=== PATIENT | male | born 1965 | race Two or more races ===

== ENCOUNTER 2017-02-04 07:09 | Day surgery (SDC) | payer OTHER ==
[2017-02-04] MEDS ORDERED: LR 1,000 ML IV ONE (07:44)
[2017-02-04] MEDS ORDERED: LIDOCAINE 1% 2 ML INJ ID PRN (07:44)
[2017-02-04 07:52] VITALS: PULSE 57
--- NOTE | 2017-02-04 08:05 | PDGENHP ---
History & Physical Chief Complaint: Screening colonoscopy Relevant Physical Exam: GEN: NAD. Cardiac: RRR. Lungs: CTA B. Abd: Soft, nt, nd
--- NOTE | 2017-02-04 08:13 | PDANEPAE ---
ANE History of Present Illness 52 YO m HERE FOR SCREENING COLO ANE Past Medical History - Cardiovascular History Hx Hypertension: No Hx Arrhythmias: No Hx Chest Pain: No Hx Coronary Artery / Peripheral Vascular Disease: No Hx CHF / Valvular Disease: No Hx Palpitations: No - Pulmonary History Hx COPD: No Hx Asthma/Reactive Airway Disease: No Hx Recent Upper Respiratory Infection: No Hx Oxygen in Use at Home: No Hx Sleep Apnea: No Sleep Apnea Screening Result - Last Documented: Negative - Neurologic History Hx Cerebrovascular Accident: No Hx Seizures: Yes Hx Dementia: No Neurologic History Comment: well managed w/Rx. tonic clonic - Endocrine History Hx Diabetes: No - Renal History Hx Renal Disorders: No - Liver History Hx Hepatic Disorders: No - Neurological & Psychiatric Hx Hx Neurological and Psychiatric Disorders: No - Cancer History Hx Cancer: No - Congenital Disorder History Hx Congenital Disorders: No - GI History Hx Gastrointestinal Disorders: No - Other Health History Other Health History: screening colonoscopy - Chronic Pain History Chronic Pain: No - Surgical History Prior Surgeries: none ANE Review of Systems Review of Systems: - Exercise capacity METS (RN): 4 METS ANE Patient History - Allergies Allergies/Adverse Reactions: No Known Allergies Allergy (Unverified 01/22/17 15:47) - Home Medications Home Medications: LEVETIRACETAM 01/22/17 [Last Taken Unknown] TESTOSTERONE 01/22/17 [Last Taken 02/04/17] - NPO status NPO Since - Liquids (Date): 02/03/17 NPO Since - Liquids (Time): 22:00 NPO Since - Solids (Date): 02/03/17 NPO Since - Solids (Time): 06:00 - Anes Hx Anes Hx: no prior problems - Smoking Hx Smoking Status: Former smoker - Alcohol Use Alcohol Use: Rarely - Family Anes Hx Family Anes Hx: none ANE Labs/Vital Signs - Vital Signs Blood Pressure: 116/78 Heart Rate: 57 Respiratory Rate: 16 O2 Sat (%): 92 Height: 172.72 cm Weight: 83.915 kg ANE Physical Exam - Airway Neck exam: FROM Mallampati Score: Class 2 Mouth exam: normal dental/mouth exam Mouth image: 1 - missing 2 - missing - Pulmonary Pulmonary: no respiratory distress, clear to auscultation - Cardiovascular Cardiovascular: regular rate and rhythym, no murmur, rub, or gallop - ASA Status ASA Status: II ANE Anesthesia Plan Anesthesia Plan: GA with mask Total IV Anesthesia: Yes
[2017-02-04] MEDS ORDERED: PROPOFOL/EMULSION 500 MG/50 ML BOTTLE IV ONE (08:16)
[2017-02-04] MEDS ORDERED: ACETAMINOPHEN 500 MG TAB PO PRN (08:19)
[2017-02-04] MEDS ORDERED: ONDANSETRON 4 MG/2 ML VIAL IVP PRN (08:19)
[2017-02-04] MEDS ORDERED: NALOXONE HCL 0.4 MG/ML INJ IVP PRN (08:19)
--- NOTE | 2017-02-04 08:55 | GIREPORT ---
[facility] Surgical Services - Endoscopy Department Patient Name: Crispin Way Procedure Date: 02/04/2017 8:15 AM Patient Type: Outpatient Attending / MARIBEL Physician: Stanford Farah MD Procedure: Colonoscopy Indications: Screening for colorectal malignant neoplasm Providers: Stanford Farah MD Medicines: Monitored Anesthesia Care Complications: No immediate complications. Findings: The perianal and digital rectal examinations were normal. The terminal ileum appeared normal. A 3 mm polyp was found in the cecum. The polyp was sessile. The polyp w as removed with a cold snare. Resection and retrieval were complete. Verification of patient identification for the specimen was done by the physician and nurse using the patient's name and date. Estimated blood loss was minimal. The retroflexed view of the distal rectum and anal verge was normal and showed no anal or rectal abnormalities. Estimated Blood Loss: Estimated blood loss: none. Post Op Diagnosis: - The examined portion of the ileum was normal. - One 3 mm polyp in the cecum, removed with a cold snare. Resected and retrieved. - The distal rectum and anal verge are normal on retroflexion view. Recommendation: - Discharge patient to home (with escort). - Resume previous diet. - Continue present medications. - Repeat colonoscopy in 5-10 years for surveillance based on pathology results. If the polyp is found to be adenomatous, a repeat colonoscopy in 5 years is recommended. Otherwise if the polyp is found to be hyperplasti c, a repeat colonoscopy in 10 years is recommended. - Await pathology results. Results are available within 10 days. - Thank you for allowing me to participate in the care of your patient. Attending Participation: I personally performed the entire procedure. Stanford Farah MD Stanford Farah MD 02/04/2017 8:54:57 AM Number of Addenda: 0 Note Initiated On: 02/04/2017 8:15 AM Total Procedure Duration Time 0 hours 20 minutes 21 seconds [email or web address]
[2017-02-04 09:44] VITALS: RESP 23
[2017-02-04 12:10] VITALS: TEMP 98.6
[2017-02-04 12:12] VITALS: BP 99/70; O2SAT 93
--- NOTE | 2017-02-04 13:07 | POSTANESTH ---
Post Anesthetic Evaluation Cardiovascular Status: Normal, Stable, Similar to Pre-Op Cond Respiratory Status: Normal, Stable, Similar to Pre-op Cond. Level of Consciousness/Mental Status: Can Participate in Eval, Alert and Oriented Pain Control: Adequate, Prn Tx Ordered Nausea/Vomiting Control: Adequate, Prn Tx Ordered Complications Possibly Related to Anesthesia: None Noted
== END 2017-02-04 10:57 | disposition home or self-care (01) ==
LOC: FSGY 07:09
PROVIDERS: ATTEND Internal Medicine Gastroenterology
PROC: 0DBH8ZX Excision of Cecum, Via Natural or Artificial Opening Endoscopic, Diagnostic (ICD-10-PCS; principal; 2017-02-04 08:30)
DX: Z12.11 Encounter for screening for malignant neoplasm of colon (principal); D37.4 Neoplasm of uncertain behavior of colon
CPT/HCPCS: J2704